=== PATIENT | female | born 1965 | race Caucasian/White ===

== ENCOUNTER 2025-02-01 12:00 | Emergency (ER) | payer SELFPAY ==
[~2025-02-01] VITALS: Ht 157.5 cm; Wt 79.4 kg
[~2025-02-01 12:00] MED LIST: AMBIEN10 MG PO; CYMBALTA60 MG PO; NEURONTIN300 MG PO; PLAQUENIL200 MG PO; REQUIP1 MG PO; SYNTHROID112 MCG PO; VOLTAREN75 MG PO
[2025-02-01 12:08] VITALS: PULSE 88; RESP 18; TEMP 97.8
[2025-02-01] MEDS: ONDANSETRON HCL 4 MG ORAL DISINTEGRATING TAB PO ONE (12:31)
[2025-02-01] MEDS: TETANUS/DIPHTHERIA TOX ADULT 0.5 ML SYR IM ONE (12:31)
[2025-02-01] MEDS: HYDROCODONE/APAP 7.5MG-325MG 1 EA TAB PO ONE (12:37)
[2025-02-01] MEDS ORDERED: AMOX TR-K CLV1 EAC2 PO (14:59)
[2025-02-01] MEDS ORDERED: DOXYCYCLINE HY100 MG PO (14:59)
[2025-02-01] MEDS: LIDOCAINE HCL 2% LOCAL 20 ML VIAL INJ ONE (15:00)
[2025-02-01 15:17] VITALS: BP 135/79; PULSE 74; RESP 17; O2SAT 100
== END 2025-02-01 15:19 | disposition home or self-care (01) ==
LOC: ER 12:10
DX: S51.852A Open bite of left forearm, initial encounter (principal); W54.0XXA Bitten by dog, initial encounter; Y92.89 Other specified places as the place of occurrence of the external cause; M06.9 Rheumatoid arthritis, unspecified; M79.7 Fibromyalgia
CPT/HCPCS: 12002; 73090; 90471; 90714; 99283; J2003; Q0162